=== PATIENT | female | born 1965 | race Caucasian/White ===

== ENCOUNTER 2021-01-30 13:56 | Outpatient (REF) | payer MEDICAID, SELFPAY ==
[2021-01-31 07:18] LABS: Albumin 4.2 g/dL (3.4-5.0); BUN 14 mg/dL (7-18); CREATININE 0.7 mg/dL (0.55-1.02); Calcium 9.4 mg/dL (8.5-10.1); Calculated LDL 105 mg/dL (<100); Cholesterol 241 mg/dL (<200); Glucose 90 mg/dL (74-106); HDL Cholesterol 113 mg/dL (40-60); Total Protein 7.1 g/dL (6.4-8.2); Triglyceride 116 mg/dL (<150)
[2021-01-31 07:19] LABS: ALT 35 U/L (14-59); AST 22 U/L (15-37); Alkaline Phosphatase 64 U/L (46-116); Bilirubin, Total 0.5 mg/dL (0.2-1.0); Chloride 105 mmol/L (98-107); Potassium 4.1 mmol/L (3.5-5.1); Sodium 143 mmol/L (136-145)
[2021-02-01 11:04] LABS: Hepatitis C Ab w Rflx HCV PCR Negative (Negative)
[2021-02-01 15:27] LABS: HIV-1/2 Ag & Ab Screen Negative (Negative)
== END 2021-01-30 13:57 | disposition home or self-care (01) ==
LOC: NCHCN 13:56
PROVIDERS: Visit Provider Nurse Practitioner Family
DX: Z11.4 Encounter for screening for human immunodeficiency virus [HIV] (principal); Z13.220 Encounter for screening for lipoid disorders; Z00.00 Encounter for general adult medical examination without abnormal findings; Z11.59 Encounter for screening for other viral diseases
CPT/HCPCS: 80053; 80061; 86803; 87389

== ENCOUNTER 2021-09-07 16:13 | Outpatient (REF) | payer MEDICAID, SELFPAY ==
[2021-09-07 20:22] LABS: ESR 13 mm/hr (0-30)
[2021-09-07 20:23] LABS: Abs Immature Grans 0.03 10^3/uL (0.0-0.06); Absolute Basophil Count 0.11 10^3/uL (0.0-0.2); Absolute Lymphocyte Count 2.85 10^3/uL (1.2-3.4); Absolute Neutrophil Count 5.22 10^3/uL (1.2-6.7); Basophils % 1.2; Eosinophils % 3.3; HCT 40.3 % (36.0-46.0); HGB 12.9 g/dL (11.2-15.7); Immature Grans % 0.3; Lymphocytes % 31.6; MCV 94 fL (80-95); MPV 10.8 fL (8.0-11.0); Monocytes % 5.5; Neutrophils % 58.1; Platelet Count 372 10^3/uL (130-400); RDW 12.3 % (11.7-14.6); RDW-SD 42.3 fL; WBC 9.01 10^3/uL (4.4-10.8)
[2021-09-07 20:42] LABS: C-Reactive Protein 0.05 mg/dL (0.0-0.3)
[2021-09-10 11:55] LABS: Lyme Ab w Rflx to Lyme Confirm Negative (Negative)
== END 2021-09-07 16:14 | disposition home or self-care (01) ==
LOC: NCHCN 16:13
PROVIDERS: Visit Provider Family Medicine
DX: M25.59 Pain in other specified joint (principal)
CPT/HCPCS: 85652; 85025; 86140; 86618